=== PATIENT | female | born 1950 | race Caucasian/White ===

== ENCOUNTER → 2021-06-30 | Day surgery (SDC) | payer MEDICARE ==
[~2021-06-30] VITALS: Ht 167.6 cm; Wt 83.9 kg
[~2021-06-30] MED LIST: AMLODIPINE BESYL5 MG PO; AVAPRO300 MG PO; COMPAZINE10 MG PO; DECADRON4 MG PO; MAG-OXIDE 400M400 MG PO; VENTOLIN HFA IN18 GM INH
== END | disposition home or self-care (01) ==
LOC: FAS 08:13
DX: D12.3 Benign neoplasm of transverse colon (principal); D12.5 Benign neoplasm of sigmoid colon; K64.4 Residual hemorrhoidal skin tags; R93.3 Abnormal findings on diagnostic imaging of other parts of digestive tract; K63.89 Other specified diseases of intestine; C34.90 Malignant neoplasm of unspecified part of unspecified bronchus or lung; I10 Essential (primary) hypertension; M81.0 Age-related osteoporosis without current pathological fracture; R91.1 Solitary pulmonary nodule; F17.210 Nicotine dependence, cigarettes, uncomplicated; Z88.5 Allergy status to narcotic agent; Z90.10 Acquired absence of unspecified breast and nipple; Z90.710 Acquired absence of both cervix and uterus
CPT/HCPCS: 88305; J1610; J2250; J2704; J7120

== ENCOUNTER 2022-01-01 12:10 | Emergency (ER) | payer MEDICARE ==
[2022-01-01 12:54] LABS: BASOPHIL 0.4 % (0-2); EOSINOPHIL 1.3 % (0-7); HCT 47.7 % (37.0-47.0); HGB 15.8 g/dl (12.5-16.0); LYMPHOCYTE 26.3 % (15-48); MCH 30.6 pg (25.0-31.0); MCHC 33.1 g/dL (32.0-36.0); MCV 92.3 fL (78.0-100.0); MONOCYTE 8.9 % (0-12); MPV 9.5 fL (6.0-9.5); NEUTROPHIL 62.8 % (41-80); NRBC 0; PLT 166 K/uL (150-400); RBC 5.17 M/uL (4.20-5.40); RDW 17.2 % (11.5-14.0)
[2022-01-01 13:47] LABS: ALBUMIN 3.3 g/dL (3.4-5.0); ALKALINE PHOSHATASE 75 U/L (46-116); ALT 21 U/L (14-59); AST 20 U/L (15-37); BILIRUBIN - TOTAL 0.7 mg/dL (0.2-1.0); BUN 10 mg/dL (7-18); BUN/CREAT RATIO (CALC) 14.3 RATIO; C-REACTIVE PROTEIN < 0.20 mg/dL (<=0.90); CHLORIDE 103 mmol/L (98-107); CO2 (BICARBONATE) 24 mmol/L (21-32); GLOBULIN (CALCULATION) 3.3 g/dL; GLUCOSE 96 mg/dL (74-106); LIPASE 137 U/L (73-393); MAGNESIUM 1.6 mg/dL (1.8-2.4); POTASSIUM 4.2 mmol/L (3.5-5.1); TOTAL PROTEIN 6.6 g/dL (6.4-8.2)
[2022-01-01 16:11] LABS: BILIRUBIN NEGATIVE (NEGATIVE); BLOOD NEGATIVE Ery/uL (NEGATIVE); CLARITY CLEAR (CLEAR); COLOR YELLOW (YELLOW); GLUCOSE (U) NORMAL (NORMAL); LEUKOCYTES 3+ Leu/uL (NEGATIVE); NITRITE NEGATIVE (NEGATIVE); PROTEIN NEGATIVE (NEGATIVE); SPECIFIC GRAVITY <=1.005 (1.001-1.030); UROBILINOGEN 0.2 mg/dL (0.2-1.0); pH 6.5 (5.0-9.0)
[2022-01-01 16:21] LABS: BACTERIA 1+
[2022-01-01] MEDS ORDERED: REGLAN10 MG PO (16:52)
[2022-01-01] MEDS ORDERED: KEFLEX250 MG PO (16:52)
== END 2022-01-01 17:14 | disposition home or self-care (01) ==
LOC: FER 12:10
PROVIDERS: Emergency Medicine
DX: E86.0 Dehydration (principal); R82.71 Bacteriuria; R11.2 Nausea with vomiting, unspecified; C34.90 Malignant neoplasm of unspecified part of unspecified bronchus or lung; C18.9 Malignant neoplasm of colon, unspecified; F17.210 Nicotine dependence, cigarettes, uncomplicated; Z20.822 Contact with and (suspected) exposure to COVID-19
CPT/HCPCS: 36415; 71250; 80053; 81001; 83605; 83690; 83735; 83880; 84145; 84443; 84484; 85025; 86140; 93005; J1170; J2405; J7030; U0002

== ENCOUNTER 2022-03-04 12:01 | Emergency (ER) | payer MEDICARE ==
[~2022-03-04] VITALS: Ht 167.6 cm; Wt 72.6 kg
[~2022-03-04 12:01] MED LIST changes: +KEFLEX250 MG PO; +REGLAN10 MG PO
[2022-03-04 14:12] LABS: BASOPHIL 0.2 % (0-2); BILIRUBIN NEGATIVE (NEGATIVE); BLOOD NEGATIVE Ery/uL (NEGATIVE); CLARITY CLEAR (CLEAR); COLOR YELLOW (YELLOW); EOSINOPHIL 0.2 % (0-7); GLUCOSE (U) NORMAL (NORMAL); HCT 45.7 % (37.0-47.0); LEUKOCYTES 1+ Leu/uL (NEGATIVE); LYMPHOCYTE 11.2 % (15-48); MCH 29.5 pg (25.0-31.0); MCHC 32.8 g/dL (32.0-36.0); MCV 89.8 fL (78.0-100.0); MONOCYTE 9.1 % (0-12); MPV 9.5 fL (6.0-9.5); NEUTROPHIL 78.9 % (41-80); NITRITE NEGATIVE (NEGATIVE); NRBC 0; PLT 223 K/uL (150-400); PROTEIN 1+ mg/dL (NEGATIVE); RBC 5.09 M/uL (4.20-5.40); RDW 14.1 % (11.5-14.0); UROBILINOGEN 0.2 mg/dL (0.2-1.0); WBC 10.4 K/uL (4.0-10.5); pH 6.5 (5.0-9.0)
[2022-03-04 14:19] LABS: BACTERIA 3+; SQUAMOUS EPITHELIAL CELLS 20-50
[2022-03-04 14:29] LABS: ALBUMIN 3.8 g/dL (3.4-5.0); BILIRUBIN - TOTAL 0.6 mg/dL (0.2-1.0); C-REACTIVE PROTEIN 1.9 mg/dL (<=0.90); CREATININE 0.52 mg/dL (0.51-0.95); GLOBULIN (CALCULATION) 3.6 g/dL; MAGNESIUM 1.9 mg/dL (1.8-2.4); POTASSIUM 3.9 mmol/L (3.5-5.1); TOTAL PROTEIN 7.4 g/dL (6.4-8.2)
[2022-03-04] MEDS ORDERED: ZANAFLEX4 MG PO (18:26)
== END 2022-03-04 18:52 | disposition home or self-care (01) ==
LOC: FER 12:01
PROVIDERS: Emergency Medicine
DX: M48.56XA Collapsed vertebra, not elsewhere classified, lumbar region, initial encounter for fracture (principal); K56.7 Ileus, unspecified; T66.XXXA Radiation sickness, unspecified, initial encounter; Z88.5 Allergy status to narcotic agent
CPT/HCPCS: 36415; 72131; 80053; 81001; 83735; 85025; 86140; 96372; J1170; J1642; J2405; Q9967

== ENCOUNTER 2022-08-14 15:00 | Emergency (ER) | payer MEDICARE ==
[~2022-08-14 15:00] MED LIST changes: +ZANAFLEX4 MG PO
[2022-08-14 15:28] LABS: BASOPHIL 0.6 % (0-2); EOSINOPHIL 1.6 % (0-7); HCT 47.9 % (37.0-47.0); HGB 15.6 g/dl (12.5-16.0); MCH 28.5 pg (25.0-31.0); MCHC 32.6 g/dL (32.0-36.0); MCV 87.6 fL (78.0-100.0); MONOCYTE 9.7 % (0-12); MPV 8.9 fL (6.0-9.5); NEUTROPHIL 67.9 % (41-80); NRBC 0; PLT 232 K/uL (150-400); RBC 5.47 M/uL (4.20-5.40); RDW 15.1 % (11.5-14.0); WBC 8.9 K/uL (4.0-10.5)
[2022-08-14 15:36] LABS: INR 1.15 (0.9-1.2); PROTHROMBIN TIME 14.4 SECONDS (11.9-13.9)
[2022-08-14 15:37] LABS: PTT 34.2 SECONDS (24.9-34.6)
[2022-08-14 15:54] LABS: ALBUMIN 3.5 g/dL (3.4-5.0); BILIRUBIN - TOTAL 0.7 mg/dL (0.2-1.0); CREATININE 0.6 mg/dL (0.51-0.95); TOTAL PROTEIN 7.5 g/dL (6.4-8.2)
[2022-08-14] MEDS ORDERED: DILAUDID4 M1 PO (18:54)
[2022-08-14] MEDS ORDERED: ONDANSETRON ODT4 MG PO (18:55)
== END 2022-08-14 19:21 | disposition home or self-care (01) ==
LOC: FER 15:00
PROVIDERS: Internal Medicine
DX: C34.90 Malignant neoplasm of unspecified part of unspecified bronchus or lung (principal); C79.51 Secondary malignant neoplasm of bone; C79.49 Secondary malignant neoplasm of other parts of nervous system; J90 Pleural effusion, not elsewhere classified; R00.0 Tachycardia, unspecified; R07.89 Other chest pain; F17.210 Nicotine dependence, cigarettes, uncomplicated; Z20.822 Contact with and (suspected) exposure to COVID-19; Z82.49 Family history of ischemic heart disease and other diseases of the circulatory system; Z88.5 Allergy status to narcotic agent; Z79.891 Long term (current) use of opiate analgesic; Z79.01 Long term (current) use of anticoagulants; Z79.899 Other long term (current) drug therapy
CPT/HCPCS: 36415; 71045; 71275; 72125; 80053; 84484; 85025; 85610; 85730; 93005; J1100; J1170; J1885; J2405; Q9967; U0002